=== PATIENT | female | born 1940 | race Two or more races ===

== ENCOUNTER 2018-10-06 16:34 | Emergency (ER) | payer OTHER ==
[~2018-10-06] VITALS: Ht 157.5 cm; Wt 68.0 kg
[2018-10-06] MEDS ORDERED: FORTAMET500 MG PO (16:55)
[2018-10-06] MEDS ORDERED: ASA81 MG PO (17:13)
[2018-10-06] MEDS ORDERED: COZAAR50 MG PO (17:14)
[2018-10-06] MEDS ORDERED: LIPITOR20 MG PO (17:14)
[2018-10-06] MEDS ORDERED: LEVOTHYROXINE25 MCG PO (17:14)
[2018-10-06] MEDS ORDERED: LOPRESSOR25 MG PO (17:15)
[2018-10-06] MEDS ORDERED: OMEPRAZOLE40 MG PO (17:16)
== END 2018-10-06 20:26 | disposition home or self-care (01) ==
LOC: ER 16:34 → CPU-OBS 17:51 → ER 17:51
DX: R07.89 Other chest pain (principal)